=== PATIENT | female | born 1980 | race Two or more races ===

== ENCOUNTER 2020-10-17 17:25 | Emergency (ER) | payer OTHER ==
[~2020-10-17] VITALS: Ht 175.3 cm; Wt 74.8 kg
--- NOTE | 2020-10-17 17:25 | NUR ---
PT BIBRA 878 FROM THE [facility] C/O ETOH. PT IS AAOX3, NOT IN RESPIRATORY DISTRESS, HOOKED TO TYPE MAPPER, KEPT RESTED AND COMFORTABLE. WILL CONTINUE TO MONITOR.
--- NOTE | 2020-10-17 19:30 | NUR ---
covid antigen swab done
[2020-10-17 19:36] LABS: BASOPHILS % (AUTO) 0.6 % (0.0-2.0); EOSINOPHILS % (AUTO) 4.8 % (0.0-6.0); HEMATOCRIT 39 % (33-45); HEMOGLOBIN 13.4 g/dL (11.5-14.8); LYMPHOCYTES # (AUTO) 2.1 /CMM (0.8-4.8); MEAN CORPUSCULAR HGB CONC 35 g/dl (31.0-36.0); MEAN CORPUSCULAR VOLUME 105 fL (82-100); MONOCYTES # (AUTO) 0.5 /CMM (0.1-1.30); MONOCYTES % (AUTO) 9.7 % (2.0-12.0); NEUTROPHILS # (AUTO) 2.7 /CMM (1.8-8.9); NEUTROPHILS % (AUTO) 47.9 % (43.0-81.0); PLATELET COUNT (AUTO) 214 /CMM (150-450); RED BLOOD CELL COUNT(AUTO) 3.69 MIL/uL (4.0-5.2); WHITE BLOOD COUNT (AUTO) 5.7 K/uL (4.3-11.0)
--- NOTE | 2020-10-17 19:43 | NUR ---
MEGAN [phone]
--- NOTE | 2020-10-17 19:45 | NUR ---
URINE SAMPLE NOT COLLECTED, PATIENT REFUSED, SHE SAID SHE CANNOT URINATE THIS TIME, WILL FOLLOW UP AGAIN LATER
[2020-10-17 19:46] LABS: CALCIUM, SERUM 8.1 mg/dL (8.5-10.1); CARBON DIOXIDE 27 mmol/L (21-32); CHLORIDE 105 mmol/L (98-107); CREATININE 0.7 mg/dL (0.6-1.3); GLUCOSE 92 mg/dL (74-106); POTASSIUM 3.8 mmol/L (3.5-5.1); SODIUM SERUM 143 mmol/L (136-145); UREA NITROGEN, BLOOD 13 mg/dL (7-18)
[2020-10-17 19:53] LABS: ALANINE AMINOTRANSFERASE 100 U/L (12-78); ALCOHOL, BLOOD 422 mg/dL (0-0); ALKALINE PHOSPHATASE 87 U/L (46-116); ASPARTATE AMINOTRANSFERASE 141 U/L (15-37); BILIRUBIN,DIRECT 0.1 mg/dL (0.0-0.2); BILIRUBIN,TOTAL 0.3 mg/dL (0.2-1.0); TOTAL PROTEIN, SERUM 7.5 g/dL (6.4-8.2)
[2020-10-17 19:54] LABS: ACETAMINOPHEN < 2 ug/ml (10-30)
--- NOTE | 2020-10-17 20:16 | NUR ---
ER AT BEDSIDE
[2020-10-17] MEDS ORDERED: QUETIAPINE FUMARATE 25 MG TABLET ONE (20:23)
[2020-10-17] MEDS ORDERED: QUETIAPINE FUMARATE 25 MG TABLET PO SCH (20:30)
[2020-10-17] MEDS ORDERED: IBUPROFEN 600 MG TABLET ONE (21:47)
[2020-10-17] MEDS ORDERED: IBUPROFEN 600 MG TABLET PO ONE (22:00)
--- NOTE | 2020-10-17 23:21 | NUR ---
PT AAOX4. PICKED UP BY FAMILY FRIEND. AMBULATORY WITH STEADY GAIT. VSS.
[2020-10-17 23:22] VITALS: BP 119/82
--- NOTE | 2020-10-17 23:22 | NUR ---
Patient discharged to home in stable condition. Written and verbal after care instructions given. Patient verbalizes understanding of instruction.
== END 2020-10-17 23:22 | disposition home or self-care (01) ==
LOC: ER 17:27
DX: F10.129 Alcohol abuse with intoxication, unspecified (principal); Y90.8 Blood alcohol level of 240 mg/100 ml or more; R45.1 Restlessness and agitation; Z20.822 Contact with and (suspected) exposure to COVID-19; Z59.0 Homelessness; R79.89 Other specified abnormal findings of blood chemistry
CPT/HCPCS: 36415; 80048; 80076; 80299; 80320; 84702; 85025; 87426; 99284; C9803; G0480

== ENCOUNTER 2021-05-17 13:09 | Emergency (ER) | payer OTHER ==
[~2021-05-17] VITALS: Ht 175.3 cm; Wt 86.2 kg
--- NOTE | 2021-05-17 13:26 | NUR ---
SEEN BY DR HAQ
--- NOTE | 2021-05-17 15:10 | NUR ---
PATIENT IN BED ASLEEP, EASILY AROUSABLE BY VOICE. HOOKED TO MONITOR. VSS. WILL CONTINUE TO MONITOR, KEPT WARM AND SAFE.
--- NOTE | 2021-05-17 16:53 | NUR ---
PATIENT VERBALIZES SHE WANTS TO GO HOME, NO SUICIDAL IDEATION. PATIENT ABLE TO WALK WITH STEADY GAIT. MADE MD AWARE
--- NOTE | 2021-05-17 16:56 | NUR ---
Patient discharged to home in stable condition. Written and verbal after care instructions given. Patient verbalizes understanding of instruction.
[2021-05-17 16:57] VITALS: BP 129/80
== END 2021-05-17 16:56 | disposition home or self-care (01) ==
LOC: ER 13:12
DX: F10.129 Alcohol abuse with intoxication, unspecified (principal); Y90.9 Presence of alcohol in blood, level not specified

== ENCOUNTER 2021-09-08 12:40 | Emergency (ER) | payer OTHER ==
[~2021-09-08] VITALS: Ht 175.3 cm; Wt 76.7 kg
--- NOTE | 2021-09-08 12:45 | NUR ---
[id number] HOME, NAUSEA AND VOMITING, TREMORS SINCE THIS MORNING. LAST ALCOHOL INTAKE LAST NIGHT. TO ER BED 11, HOOKED TO MONITOR, VSS. CHANGED TO HOSP GOWN, WARM BLANKET PROVIDED, PATIENT AAO x 4. BREATHING EVEN AND UNLABORED, AWAITING MD VILLEGAS
--- NOTE | 2021-09-08 12:50 | NUR ---
DR HERNANDEZ AT BEDSIDE
[2021-09-08] MEDS ORDERED: CHLORDIAZEPOXIDE HCL 25 MG CAPSULE ONE (12:58)
[2021-09-08] MEDS ORDERED: ONDANSETRON HCL/PF 4 MG/2 ML VIAL ONE (12:58)
[2021-09-08] MEDS ORDERED: ONDANSETRON HCL/PF 4 MG/2 ML VIAL IV ONE (13:00)
[2021-09-08] MEDS ORDERED: CHLORDIAZEPOXIDE HCL 25 MG CAPSULE PO ONE (13:00)
[2021-09-08] MEDS ORDERED: IV NS 0.9% 1,000 ML BAG IV ONE (13:00)
[2021-09-08 13:17] LABS: BASOPHILS % (AUTO) 1.1 % (0.0-2.0); EOSINOPHILS % (AUTO) 1.8 % (0.0-6.0); HEMATOCRIT 43 % (33-45); HEMOGLOBIN 14.9 g/dL (11.5-14.8); LYMPHOCYTES # (AUTO) 0.6 K/uL (0.8-4.8); LYMPHOCYTES % (AUTO) 20.9 % (20.0-44.0); MEAN CORPUSCULAR HGB CONC 35 g/dl (31.0-36.0); MEAN CORPUSCULAR VOLUME 105 fL (82-100); MONOCYTES # (AUTO) 0.3 K/uL (0.1-1.30); MONOCYTES % (AUTO) 11.2 % (2.0-12.0); NEUTROPHILS # (AUTO) 1.9 K/uL (1.8-8.9); PLATELET COUNT (AUTO) 134 K/uL (150-450); RED BLOOD CELL COUNT(AUTO) 4.12 MIL/uL (4.0-5.2); WHITE BLOOD COUNT (AUTO) 2.9 K/uL (4.3-11.0)
--- NOTE | 2021-09-08 13:18 | NUR ---
PATIENT NOT ABLE TO PROVIDE URINE SAMPLE AT THIS TIME. MADE AWARE
[2021-09-08 13:29] LABS: ALBUMIN 4.3 g/dL (3.4-5.0); BILIRUBIN,DIRECT 0.6 mg/dL (0.0-0.2); BILIRUBIN,TOTAL 1.3 mg/dL (0.2-1.0); CALCIUM, SERUM 9.2 mg/dL (8.5-10.1); CREATININE 0.9 mg/dL (0.6-1.3); POTASSIUM 3.8 mmol/L (3.5-5.1); TOTAL PROTEIN, SERUM 8.7 g/dL (6.4-8.2)
--- NOTE | 2021-09-08 13:43 | NUR ---
X-RAY TECH. AT BED SIDE.
--- NOTE | 2021-09-08 14:00 | NUR ---
PATIENT STILL NOT ABLE TO PROVIDE URINE SAMPLE, PER MD "IT'S OK"
[2021-09-08] MEDS ORDERED: CHLO25CA22 PO (14:16)
[2021-09-08] MEDS ORDERED: ONDA4TAB5 PO (14:16)
--- NOTE | 2021-09-08 14:30 | NUR ---
SW AT BEDSIDE
--- NOTE | 2021-09-08 14:36 | NUR ---
Close friends: Christiano [[phone]], Dario [[phone]].
--- NOTE | 2021-09-08 14:47 | NUR ---
SS Consult: SS consult for ETOH. Pt. Is a 41-year-old female who demonstrates adequate insight to the reason for hospitalization. Per pt., she presented herself to hospital for drinking. Pt. was oriented x3, alert, and cooperative. During interview, pt. was capable of following directions, made appropriate eye-contact, and appeared groomed. Pt. is currently withdrawing from drinking last night. Pt.'s speech was at a normal rate and pt.'s mood was elevated. Pt. reported no hx of mental health, suicidal ideation, or homicidal ideation. Pt. denies visual hallucinations, paranoia, or delusions. Pt. stated that she has hx of auditory hallucinations. She hears her father's voice who years ago. Pt. has been drinking for 10 years. She stated that she has tried rehab, but she does not like it. SW explored pt.'s living situation. Per pt., she lives alone [[address] [place] [address]]. She has a supportive neighbor and 2 close friends [Christiano [phone] and Dario [phone]]. Plan: MARIANNA provided available addiction and rehab resources and pt. accepted. Upon discharge, per pt., she will return home. Pt. stated that her friends Christiano or Dario can come pick her up. Resources Provided: Substance Abuse resources provided included: [facility] Substance Abuse Self-Helpline ([facility]) ; [facility] [id number] [facility] [id number] ; [facility] [address] [facility] [address] ; [facility] [address] [facility] [address] ; [facility] [address] [facility] [address] ; [facility] [address] [facility] [address] ; [facility] [address] [facility] [id number] ; [facility] Substance Abuse Helpline([facility] ; [facility] ; [facility] [place]; [facility] [place]; [facility] [place]; [facility] [place]; [facility] [place]; [facility] [place]; [facility]; [facility], [facility]. Felicia Schmidt; Alcoholics Anonymous [facility]; [facility] ; Marijuana Anonymous [facility]; Narcotics Anonymous www.na.org;
--- NOTE | 2021-09-08 15:00 | NUR ---
IV removed. Catheter intact and site benign. Pressure and 4x4 applied to site. No bleeding noted.Patient discharged to home in stable condition. Written and verbal after care instructions given. Patient verbalizes understanding of instruction.
[2021-09-08 15:01] VITALS: BP 149/100
--- NOTE | 2021-09-08 15:03 | NUR ---
INSTRUCTED NOT TO DRIVE. PATIENT STATES "SOMEONE WILL PICK ME UP"
[2021-09-09 03:12] LABS: EOSINOPHILS % (MANUAL) 2 % (0-4); LYMPHOCYTES % (MANUAL) 22 % (16-48); MONOCYTES % (MANUAL) 13 % (0-11.0); NEUTROPHILS % (MANUAL) 63 (42-76)
== END 2021-09-08 15:03 | disposition home or self-care (01) ==
LOC: ER 12:54
DX: F10.229 Alcohol dependence with intoxication, unspecified (principal); F10.239 Alcohol dependence with withdrawal, unspecified; R74.01 Elevation of levels of liver transaminase levels; E80.6 Other disorders of bilirubin metabolism; E87.1 Hypo-osmolality and hyponatremia; Y90.6 Blood alcohol level of 120-199 mg/100 ml
CPT/HCPCS: 36415; 71045; 80048; 80076; 80320; 85007; 85025; 96361; 96374; 99284; J2405; J7030; G0480

== ENCOUNTER 2021-09-21 09:31 | Emergency (ER) | payer OTHER ==
[~2021-09-21] VITALS: Ht 175.3 cm; Wt 68.0 kg
[~2021-09-21 09:31] MED LIST: CHLO25CA22 PO; ONDA4TAB5 PO
--- NOTE | 2021-09-21 10:00 | NUR ---
to er bed 10. bib ra from car/home with etoh noted on breath. provided with warm blanket for comfort. will contineu to monitor.
[2021-09-21 10:58] LABS: BASOPHILS # (AUTO) 0.1 K/uL (0.0-0.2); EOSINOPHILS % (AUTO) 4.9 % (0.0-6.0); HEMATOCRIT 39 % (33-45); HEMOGLOBIN 13.6 g/dL (11.5-14.8); LYMPHOCYTES # (AUTO) 1.6 K/uL (0.8-4.8); LYMPHOCYTES % (AUTO) 29.1 % (20.0-44.0); MEAN CORPUSCULAR HGB CONC 35 g/dl (31.0-36.0); MEAN CORPUSCULAR VOLUME 106 fL (82-100); MONOCYTES # (AUTO) 0.6 K/uL (0.1-1.30); MONOCYTES % (AUTO) 10.5 % (2.0-12.0); NEUTROPHILS # (AUTO) 2.9 K/uL (1.8-8.9); NEUTROPHILS % (AUTO) 54.5 % (43.0-81.0); PLATELET COUNT (AUTO) 365 K/uL (150-450); RED BLOOD CELL COUNT(AUTO) 3.66 MIL/uL (4.0-5.2); WHITE BLOOD COUNT (AUTO) 5.3 K/uL (4.3-11.0)
[2021-09-21 11:29] LABS: CALCIUM, SERUM 9.1 mg/dL (8.5-10.1); CREATININE 0.6 mg/dL (0.6-1.3); POTASSIUM 4.2 mmol/L (3.5-5.1)
[2021-09-21 11:34] LABS: BILIRUBIN,URINE NEGATIVE (NEGATIVE); COLOR,URINE YELLOW (YELLOW); LEUKOCYTE ESTERASE ,URINE TRACE (NEGATIVE); NITRITE, URINE NEGATIVE (NEGATIVE); PROTEIN,URINE NEGATIVE (NEGATIVE); UGLUCOSE NEGATIVE (NEGATIVE); UROBILINOGEN,URINE 0.2 EU/dL (0.2)
[2021-09-21 11:37] LABS: ALBUMIN 4.1 g/dL (3.4-5.0); BILIRUBIN,DIRECT 0.2 mg/dL (0.0-0.2); BILIRUBIN,TOTAL 0.4 mg/dL (0.2-1.0); TOTAL PROTEIN, SERUM 8.3 g/dL (6.4-8.2)
[2021-09-21 12:06] LABS: BACTERIA,URINE Many /HPF (None Seen); SQUAMOUS EPITHELIAL CELL,UR Few /HPF (None Seen); WBC,URINE 20-25 /HPF (0-3)
[2021-09-21] MEDS ORDERED: CHLO25CA22 PO (13:24)
[2021-09-21 13:34] VITALS: BP 126/84
== END 2021-09-21 13:35 | disposition home or self-care (01) ==
LOC: ER 09:33
DX: F10.229 Alcohol dependence with intoxication, unspecified (principal); R74.01 Elevation of levels of liver transaminase levels; F32.A Depression, unspecified; F41.9 Anxiety disorder, unspecified; Z79.899 Other long term (current) drug therapy; Y90.8 Blood alcohol level of 240 mg/100 ml or more
CPT/HCPCS: 36415; 80048-TC; 80076-TC; 81001; 85025-TC; 87086-TC; G0480

== ENCOUNTER 2022-06-08 15:02 | Emergency (ER) | payer OTHER ==
[~2022-06-08] VITALS: Ht 175.3 cm; Wt 84.4 kg
[2022-06-08 16:03] LABS: BASOPHILS # (AUTO) 0.2 K/uL (0.0-0.2); BASOPHILS % (AUTO) 0.8 % (0.0-2.0); EOSINOPHILS % (AUTO) 1.6 % (0.0-6.0); HEMATOCRIT 30 % (33-45); HEMOGLOBIN 9.9 g/dL (11.5-14.8); LYMPHOCYTES # (AUTO) 1.8 K/uL (0.8-4.8); LYMPHOCYTES % (AUTO) 6.5 % (20.0-44.0); MEAN CORPUSCULAR HGB CONC 33 g/dl (31.0-36.0); MEAN CORPUSCULAR VOLUME 109 fL (82-100); MONOCYTES # (AUTO) 1.6 K/uL (0.1-1.30); MONOCYTES % (AUTO) 5.6 % (2.0-12.0); NEUTROPHILS # (AUTO) 24.1 K/uL (1.8-8.9); NEUTROPHILS % (AUTO) 85.5 % (43.0-81.0); PLATELET COUNT (AUTO) 327 K/uL (150-450); RED BLOOD CELL COUNT(AUTO) 2.74 MIL/uL (4.0-5.2); WHITE BLOOD COUNT (AUTO) 28.2 K/uL (4.3-11.0)
[2022-06-08 16:14] LABS: CALCIUM, SERUM 7.6 mg/dL (8.5-10.1)
[2022-06-08 16:24] LABS: ALBUMIN 1.7 g/dL (3.4-5.0); BILIRUBIN,DIRECT 9.8 mg/dL (0.0-0.2); BILIRUBIN,TOTAL 12.3 mg/dL (0.2-1.0); TOTAL PROTEIN, SERUM 6.4 g/dL (6.4-8.2)
[2022-06-08] MEDS ORDERED: IV NS 0.9% 1,000 ML BAG IV ONE (16:30)
[2022-06-08] MEDS ORDERED: CEFTRIAXONE 1GM BAG (ER ONLY) 1 GM/50 ML PIGGYBACK IV ONE (16:30)
[2022-06-08] MEDS ORDERED: CEFTRIAXONE 1GM BAG (ER ONLY) 50 ML IV ONE (16:48)
[2022-06-08 17:24] LABS: BAND % (MANUAL) 2 % (0.0-5.0); EOSINOPHILS % (MANUAL) 1 % (0-4); LYMPHOCYTES % (MANUAL) 5 % (16-48); MONOCYTES % (MANUAL) 8 % (0-11.0); NEUTROPHILS % (MANUAL) 84 (42-76)
[2022-06-08] MEDS ORDERED: IOHEXOL-300 100 ML VIAL IV ONE (18:05)
[2022-06-08] MEDS ORDERED: IV NS 0.9% 250 ML IV ONE (18:06)
[2022-06-08 18:15] LABS: BILIRUBIN,URINE 3+ (NEGATIVE); COLOR,URINE AMBER (YELLOW); LEUKOCYTE ESTERASE ,URINE TRACE (NEGATIVE); NITRITE, URINE NEGATIVE (NEGATIVE); PH,URINE 7.5 (5.0-8.0); PROTEIN,URINE 1+ mg/dl (NEGATIVE); UGLUCOSE TRACE mg/dL (NEGATIVE)
[2022-06-08 18:27] LABS: BACTERIA,URINE 1+ /HPF (None Seen); RBC,URINE 0-2 /HPF (0-2); SQUAMOUS EPITHELIAL CELL,UR Moderate /HPF (None Seen); YEAST,URINE Few /HPF (None Seen)
[2022-06-08 20:41] VITALS: BP 109/67
== END 2022-06-08 21:55 | disposition left against medical advice (07) ==
LOC: ER 15:04
DX: K70.31 Alcoholic cirrhosis of liver with ascites (principal); R00.0 Tachycardia, unspecified; D72.829 Elevated white blood cell count, unspecified; J90 Pleural effusion, not elsewhere classified; Z97.5 Presence of (intrauterine) contraceptive device; A41.9 Sepsis, unspecified organism; Z20.822 Contact with and (suspected) exposure to COVID-19; Z53.29 Procedure and treatment not carried out because of patient's decision for other reasons
CPT/HCPCS: 99291; 74177; 96365; 87426; 82140; 85025; 80048; 87040 ×2; 83605 ×2; 83690; 80076; 84703; 85610; 81001; 36415; 87081; 85007; J7050; J0696; Q9967; C9803

== ENCOUNTER 2023-02-02 11:56 | Inpatient (IN) | payer OTHER ==
[~2023-02-02] VITALS: Ht 175.3 cm; Wt 78.0 kg
[2023-02-02] MEDS ORDERED: MORPHINE SULFATE INJ 4 MG/ML DISP.SYRIN ONE (13:59)
[2023-02-02] MEDS ORDERED: ONDANSETRON HCL/PF 4 MG/2 ML VIAL ONE (13:59)
[2023-02-02] MEDS ORDERED: ONDANSETRON HCL/PF - ER 4 MG/2 ML VIAL IV ONE (14:00)
[2023-02-02] MEDS ORDERED: MORPHINE SULFATE INJ 2 MG/ML DISP.SYRIN IV ONE (14:00)
[2023-02-02 14:11] LABS: PREGNANCY TEST URINE QUAL NEGATIVE (NEGATIVE)
[2023-02-02 14:13] LABS: BASOPHILS # (AUTO) 0.1 K/uL (0.0-0.2); BASOPHILS % (AUTO) 1.3 % (0.0-2.0); EOSINOPHILS # (AUTO) 0.1 K/uL (0.0-0.7); EOSINOPHILS % (AUTO) 1.4 % (0.0-6.0); LYMPHOCYTES # (AUTO) 0.5 K/uL (0.8-4.8); MEAN CORPUSCULAR HEMOGLOBIN 37 PG (26.0-33.0); MEAN CORPUSCULAR HGB CONC 34 g/dl (31.0-36.0); MEAN CORPUSCULAR VOLUME 109 fL (82-100); MONOCYTES # (AUTO) 0.9 K/uL (0.1-1.30); MONOCYTES % (AUTO) 8.2 % (2.0-12.0); NEUTROPHILS # (AUTO) 8.9 K/uL (1.8-8.9); NEUTROPHILS % (AUTO) 84.1 % (43.0-81.0); PLATELET COUNT (AUTO) 194 K/uL (150-450); WHITE BLOOD COUNT (AUTO) 10.6 K/uL (4.3-11.0)
[2023-02-02 14:14] LABS: APPEARANCE,URINE CLOUDY (CLEAR); BILIRUBIN,URINE 2+ (NEGATIVE); BLOOD, URINE TRACE-INTA Ery/uL (NEGATIVE); COLOR,URINE YELLOW (YELLOW); KETONES,URINE 1+ mg/dL (NEGATIVE); LEUKOCYTE ESTERASE ,URINE 3+ (NEGATIVE); NITRITE, URINE POSITIVE (NEGATIVE); PH,URINE 5.5 (5.0-8.0); PROTEIN,URINE TRACE mg/dl (NEGATIVE); UGLUCOSE NEGATIVE (NEGATIVE)
[2023-02-02 14:25] LABS: ALBUMIN 3.4 g/dL (3.4-5.0); BILIRUBIN,DIRECT 3.2 mg/dL (0.0-0.2); BILIRUBIN,TOTAL 8.8 mg/dL (0.2-1.0); CALCIUM, SERUM 8.9 mg/dL (8.5-10.1); CREATININE 1.2 mg/dL (0.6-1.3); MAGNESIUM 1.7 mg/dL (1.8-2.4); POTASSIUM 3.9 mmol/L (3.5-5.1); TOTAL PROTEIN, SERUM 6.5 g/dL (6.4-8.2)
[2023-02-02 14:40] LABS: HEMOGLOBIN 5.7 g/dL (11.5-14.8); RED BLOOD CELL COUNT(AUTO) 1.52 MIL/uL (4.0-5.2)
[2023-02-02 14:41] LABS: HEMATOCRIT 17 % (33-45)
[2023-02-02] MEDS ORDERED: FURO-145 PO (14:51)
[2023-02-02] MEDS ORDERED: SPIR25TA6 PO (14:51)
[2023-02-02 16:36] LABS: EOSINOPHILS % (MANUAL) 1 % (0-4); LYMPHOCYTES % (MANUAL) 5 % (16-48); MONOCYTES % (MANUAL) 3 % (0-11.0); NEUTROPHILS % (MANUAL) 91 (42-76)
[2023-02-02 16:37] LABS: ANISOCYTOSIS 1+; PLATELET ESTIMATE ADEQUATE
[2023-02-02 16:42] LABS: ADD URINE CULTURE YES; BACTERIA,URINE 4+ /HPF (None Seen); MUCUS,URINE Few /LPF (None Seen)
[2023-02-02] MEDS ORDERED: PANTOPRAZOLE 80 MG in IV NS 0.9% 500 ML IV ONE (17:00)
[2023-02-02] MEDS ORDERED: PANTOPRAZOLE 40 MG VIAL ONE (17:13)
[2023-02-02] MEDS ORDERED: CEFTRIAXONE 1GM BAG (ER ONLY) 50 ML IV ONE (17:13)
[2023-02-02] MEDS ORDERED: CEFTRIAXONE 1 G in IV D5W 50 ML IV ONE (17:30)
[2023-02-02] MEDS ORDERED: Magnesium 1GM/D5W 100ML PREMIX 100 ML IV SCH (17:30)
[2023-02-02] MEDS ORDERED: ONDANSETRON HCL/PF 4 MG/2 ML VIAL IVP PRN (17:30)
[2023-02-02] MEDS ORDERED: PANTOPRAZOLE 40 MG VIAL IV ONE (17:30)
[2023-02-02 17:44] LABS: INR 1.46 (0.91-1.10); PARTIAL THROMBOPLASTIN TIME 30.2 SEC (24.3-34.3)
[2023-02-02] MEDS ORDERED: Magnesium 1GM/D5W 100ML PREMIX 100 ML IV ONE (18:01)
[2023-02-02 20:45] VITALS: BP 109/47; TEMP 98.8
[2023-02-02 21:00] VITALS: BP 116/56; TEMP 98.2
[2023-02-02 21:30] VITALS: BP 113/59; TEMP 98.6
[2023-02-02 22:30] VITALS: BP 114/68; TEMP 98.6
[2023-02-02 23:30] VITALS: BP 103/53; TEMP 98.4
[2023-02-02 23:44] VITALS: BP 109/63; TEMP 98.3
[2023-02-03] VITALS (17 sets, daily range): BP systolic 99–120; BP diastolic 49–78; TEMP 98.1–99; O2SAT 99–100
[2023-02-03 02:38] LABS: HEMOGLOBIN 6.1 g/dL (11.5-14.8)
[2023-02-03 08:30] LABS: BASOPHILS # (AUTO) 0.4 K/uL (0.0-0.2); BASOPHILS % (AUTO) 4.1 % (0.0-2.0); EOSINOPHILS # (AUTO) 0.3 K/uL (0.0-0.7); EOSINOPHILS % (AUTO) 3.2 % (0.0-6.0); HEMATOCRIT 23 % (33-45); HEMOGLOBIN 7.5 g/dL (11.5-14.8); LYMPHOCYTES # (AUTO) 1.6 K/uL (0.8-4.8); LYMPHOCYTES % (AUTO) 15.8 % (20.0-44.0); MEAN CORPUSCULAR HEMOGLOBIN 37 PG (26.0-33.0); MEAN CORPUSCULAR HGB CONC 33 g/dl (31.0-36.0); MEAN CORPUSCULAR VOLUME 112 fL (82-100); MONOCYTES # (AUTO) 0.8 K/uL (0.1-1.30); MONOCYTES % (AUTO) 7.5 % (2.0-12.0); NEUTROPHILS # (AUTO) 7.1 K/uL (1.8-8.9); NEUTROPHILS % (AUTO) 69.4 % (43.0-81.0); PLATELET COUNT (AUTO) 164 K/uL (150-450); RED BLOOD CELL COUNT(AUTO) 2.01 MIL/uL (4.0-5.2); RED CELL DISTRIBUTION WIDTH 20.1 % (11.5-15.0); WHITE BLOOD COUNT (AUTO) 10.2 K/uL (4.3-11.0)
[2023-02-03 08:52] LABS: ALBUMIN 3.1 g/dL (3.4-5.0); BILIRUBIN,TOTAL 7.6 mg/dL (0.2-1.0); CALCIUM, SERUM 8.6 mg/dL (8.5-10.1); MAGNESIUM 2.2 mg/dL (1.8-2.4); PHOSPHORUS 4.2 mg/dL (2.5-4.9); POTASSIUM 3.7 mmol/L (3.5-5.1); TOTAL PROTEIN, SERUM 6.5 g/dL (6.4-8.2)
[2023-02-03] MEDS: SPIRONOLACTONE 25 MG TABLET PO SCH ×2 (09:00→17:14)
[2023-02-03] MEDS: FUROSEMIDE 20 MG TABLET PO SCH ×2 (09:00→17:14)
[2023-02-03] MEDS: CEFTRIAXONE 1 G in IV D5W 50 ML IV SCH (09:45)
[2023-02-03 13:13] LABS: HEMOGLOBIN 6.8 g/dL (11.5-14.8)
[2023-02-03] MEDS: HYDROCODONE/APAP 5/325MG TABLET PO PRN (14:17)
[2023-02-03] MEDS ORDERED: FUROSEMIDE 20 MG/2 ML VIAL IV PRN (20:00)
[2023-02-03] MEDS: MORPHINE SULFATE INJ 2 MG/ML DISP.SYRIN IV PRN (20:36)
[2023-02-03] MEDS: PANTOPRAZOLE 40 MG VIAL IV SCH (20:37)
[2023-02-03 23:46] LABS: HEMOGLOBIN 7.4 g/dL (11.5-14.8)
[2023-02-04] VITALS (11 sets, daily range): BP systolic 99–120; BP diastolic 39–81; TEMP 98.2–99.6; O2SAT 96–100
[2023-02-04 04:27] LABS: HEMOGLOBIN 8.1 g/dL (11.5-14.8)
[2023-02-04] MEDS: MORPHINE SULFATE INJ 2 MG/ML DISP.SYRIN IV PRN ×3 (04:30→12:47)
[2023-02-04] MEDS: PANTOPRAZOLE 40 MG VIAL IV SCH (08:27)
[2023-02-04] MEDS: SPIRONOLACTONE 25 MG TABLET PO SCH ×2 (08:27→16:45)
[2023-02-04] MEDS: FUROSEMIDE 20 MG TABLET PO SCH ×2 (08:27→16:45)
[2023-02-04] MEDS: CEFTRIAXONE 1 G in IV D5W 50 ML IV SCH (08:32)
[2023-02-04] MEDS: PANTOPRAZOLE 40 MG TABLET.DR PO SCH ×2 (09:00→20:46)
[2023-02-04 12:58] LABS: HEMOGLOBIN 6.8 g/dL (11.5-14.8)
[2023-02-04] MEDS ORDERED: ACETAMINOPHEN 325 MG TABLET PO PRN (15:12)
[2023-02-04 20:30] LABS: HEMOGLOBIN 8.2 g/dL (11.5-14.8)
[2023-02-04] MEDS: HYDROCODONE/APAP 5/325MG TABLET PO PRN (20:49)
[2023-02-05] VITALS: BP 113/48; TEMP 97.8; O2SAT 100
[2023-02-05 04:00] VITALS: BP 107/62; TEMP 99; O2SAT 100
[2023-02-05] MEDS: HYDROCODONE/APAP 5/325MG TABLET PO PRN (05:33)
[2023-02-05 05:54] LABS: BASOPHILS % (AUTO) 0.2 % (0.0-2.0); EOSINOPHILS # (AUTO) 0.1 K/uL (0.0-0.7); EOSINOPHILS % (AUTO) 1.6 % (0.0-6.0); HEMATOCRIT 22 % (33-45); HEMOGLOBIN 7.7 g/dL (11.5-14.8); LYMPHOCYTES # (AUTO) 0.9 K/uL (0.8-4.8); LYMPHOCYTES % (AUTO) 16.1 % (20.0-44.0); MEAN CORPUSCULAR HEMOGLOBIN 35 PG (26.0-33.0); MEAN CORPUSCULAR HGB CONC 34 g/dl (31.0-36.0); MEAN CORPUSCULAR VOLUME 100 fL (82-100); MONOCYTES # (AUTO) 0.6 K/uL (0.1-1.30); NEUTROPHILS % (AUTO) 71.1 % (43.0-81.0); PLATELET COUNT (AUTO) 120 K/uL (150-450); RED BLOOD CELL COUNT(AUTO) 2.22 MIL/uL (4.0-5.2); RED CELL DISTRIBUTION WIDTH 21.8 % (11.5-15.0); WHITE BLOOD COUNT (AUTO) 5.6 K/uL (4.3-11.0)
[2023-02-05 06:06] LABS: CALCIUM, SERUM 8.3 mg/dL (8.5-10.1); CREATININE 0.6 mg/dL (0.6-1.3); POTASSIUM 3.6 mmol/L (3.5-5.1)
[2023-02-05 06:11] LABS: MAGNESIUM 1.7 mg/dL (1.8-2.4); PHOSPHORUS 2.5 mg/dL (2.5-4.9)
[2023-02-05 08:00] VITALS: BP 103/54; TEMP 99.2; O2SAT 100
[2023-02-05] MEDS: PANTOPRAZOLE 40 MG TABLET.DR PO SCH (08:10)
[2023-02-05] MEDS: FUROSEMIDE 20 MG TABLET PO SCH (08:10)
[2023-02-05] MEDS: SPIRONOLACTONE 25 MG TABLET PO SCH (08:10)
[2023-02-05] MEDS: CEFTRIAXONE 1 G in IV D5W 50 ML IV SCH (08:10)
[2023-02-05] MEDS ORDERED: MAGNESIUM OXIDE 400 MG TABLET PO ONE (10:30)
[2023-02-05] MEDS ORDERED: OXYC5CAP18 PO (10:34)
[2023-02-05 12:00] VITALS: BP 110/63; TEMP 98.7; O2SAT 99
== END 2023-02-05 14:20 | disposition home or self-care (01) | DRG 663 ==
LOC: ER 11:58 → TELE-TD 18:31 → TELE1 23:11
PROVIDERS: ADMIT Internal Medicine; ATTEND Internal Medicine
PROC: 30233N1 Transfusion of Nonautologous Red Blood Cells into Peripheral Vein, Percutaneous Approach (ICD-10-PCS; principal; 2023-02-02)
DX: D50.0 Iron deficiency anemia secondary to blood loss (chronic) (principal); D68.9 Coagulation defect, unspecified; K70.30 Alcoholic cirrhosis of liver without ascites; G57.02 Lesion of sciatic nerve, left lower limb; E80.6 Other disorders of bilirubin metabolism; R74.01 Elevation of levels of liver transaminase levels; K83.8 Other specified diseases of biliary tract; N39.0 Urinary tract infection, site not specified
CPT/HCPCS: 36415; 71045-TC; 72100-TC; 72148-TC; 74181-TC; 76700-TC; 80048-TC; 80053-TC; 80076-TC; 81001; 83605-TC; 83690-TC; 83735-TC; 84100-TC; 84484-TC; 84703-TC; 85025-TC; 85027-TC; 85730-TC; 86850-TC; 87081-TC; 87086-TC; 97112-TC; 97116-TC; 97530-TC; A4223; A6403; C9113; G0378; J0696; J1940; J2270; J2405; J3475; J7030; J7050; J7060; P9016

== ENCOUNTER 2023-02-21 13:02 | Emergency (ER) | payer OTHER ==
[~2023-02-21] VITALS: Ht 172.7 cm; Wt 71.7 kg
[~2023-02-21 13:02] MED LIST changes: -CHLO25CA22 PO; +FURO-145 PO; -ONDA4TAB5 PO; +OXYC5CAP18 PO; +SPIR25TA6 PO
[2023-02-21 14:47] VITALS: BP 112/81; TEMP 98.4; O2SAT 100
== END 2023-02-21 14:48 | disposition home or self-care (01) ==
LOC: ER 13:02
DX: S61.211A Laceration without foreign body of left index finger without damage to nail, initial encounter (principal); F10.10 Alcohol abuse, uncomplicated; Z79.899 Other long term (current) drug therapy; Z88.1 Allergy status to other antibiotic agents; Y90.9 Presence of alcohol in blood, level not specified; W25.XXXA Contact with sharp glass, initial encounter; Y93.89 Activity, other specified; Y92.89 Other specified places as the place of occurrence of the external cause; Y99.8 Other external cause status
CPT/HCPCS: 99283; 12001; 82962; A6403

== ENCOUNTER 2023-12-07 03:46 | Emergency (ER) | payer OTHER ==
[~2023-12-07] VITALS: Ht 175.3 cm; Wt 71.7 kg
[2023-12-07] MEDS ORDERED: OLANZAPINE 10 MG VIAL IM ONE (07:17)
[2023-12-07] MEDS: OLANZAPINE 10 MG VIAL IM ONE (07:27)
[2023-12-07 08:49] VITALS: BP 138/69; TEMP 97.7; O2SAT 98
[2023-12-07] MEDS ORDERED: ONDANSETRON 4 MG TAB.RAPDIS SL ONE (09:00)
== END 2023-12-07 08:49 | disposition home or self-care (01) ==
LOC: ER 04:02
DX: F10.10 Alcohol abuse, uncomplicated (principal); Z79.899 Other long term (current) drug therapy; Z88.1 Allergy status to other antibiotic agents; Y90.9 Presence of alcohol in blood, level not specified
CPT/HCPCS: 99283; 96372; 82962; J3490

== ENCOUNTER 2024-01-14 12:17 | Emergency (ER) | payer OTHER ==
[~2024-01-14] VITALS: Ht 175.3 cm; Wt 68.5 kg
[2024-01-14 13:23] LABS: APPEARANCE,URINE CLEAR (CLEAR); BILIRUBIN,URINE 1+ (NEGATIVE); BLOOD, URINE NEGATIVE Ery/uL (NEGATIVE); COLOR,URINE YELLOW (YELLOW); KETONES,URINE NEGATIVE (NEGATIVE); LEUKOCYTE ESTERASE ,URINE 1+ (NEGATIVE); NITRITE, URINE NEGATIVE (NEGATIVE); PROTEIN,URINE NEGATIVE (NEGATIVE); UGLUCOSE NEGATIVE (NEGATIVE)
[2024-01-14 13:27] LABS: PREGNANCY TEST URINE QUAL NEGATIVE (NEGATIVE)
[2024-01-14 13:36] LABS: ADD URINE CULTURE YES; BACTERIA,URINE 1+ /HPF (None Seen); RBC,URINE NONE SEEN /HPF (0-2)
[2024-01-14 13:43] LABS: AMPHETAMINE, URINE NEGATIVE (NEGATIVE); BARBITURATE, URINE NEGATIVE (NEGATIVE); BENZODIAZEPINE, URINE NEGATIVE (NEGATIVE); CANNABINOID, URINE POSITIVE (NEGATIVE); COCCAINE, URINE NEGATIVE (NEGATIVE); OPIATE, URINE NEGATIVE (NEGATIVE); PHENCYCLIDINE SCREEN,URINE NEGATIVE (NEGATIVE)
[2024-01-14] MEDS ORDERED: NITR100C6 PO (14:25)
[2024-01-14 14:59] VITALS: BP 115/66; TEMP 98.4; O2SAT 100
== END 2024-01-14 15:00 | disposition home or self-care (01) ==
LOC: ER 12:19
DX: F10.129 Alcohol abuse with intoxication, unspecified (principal); R10.2 Pelvic and perineal pain; Z79.899 Other long term (current) drug therapy; Z79.891 Long term (current) use of opiate analgesic; Z88.1 Allergy status to other antibiotic agents; Y90.9 Presence of alcohol in blood, level not specified
CPT/HCPCS: 81001; 82962-TC; 84703-TC

== ENCOUNTER 2024-03-10 10:30 | Emergency (ER) | payer OTHER ==
[~2024-03-10] VITALS: Ht 175.3 cm; Wt 72.6 kg
[~2024-03-10 10:30] MED LIST changes: +NITR100C6 PO
[2024-03-10 15:10] VITALS: BP 126/68; TEMP 97.8; O2SAT 98
== END 2024-03-10 14:45 | disposition left against medical advice (07) ==
LOC: ER 10:55
DX: S09.8XXA Other specified injuries of head, initial encounter (principal); F10.129 Alcohol abuse with intoxication, unspecified; Z79.891 Long term (current) use of opiate analgesic; Z79.899 Other long term (current) drug therapy; Z88.1 Allergy status to other antibiotic agents; Y90.0 Blood alcohol level of less than 20 mg/100 ml; W18.39XA Other fall on same level, initial encounter; Y93.89 Activity, other specified; Y92.481 Parking lot as the place of occurrence of the external cause; Y99.8 Other external cause status
CPT/HCPCS: 70450-TC; 72125-TC

== ENCOUNTER 2024-04-06 12:47 | Inpatient (IN) | payer OTHER ==
[~2024-04-06] VITALS: Ht 175.3 cm; Wt 73.5 kg
[2024-04-06] MEDS: IV NS 0.9% 1,000 ML BAG IV ONE ×2 (13:06→14:39)
[2024-04-06] MEDS ORDERED: OLAN20TA3 PO (13:23)
[2024-04-06] MEDS ORDERED: ALPR1TAB7 PO (13:23)
[2024-04-06] MEDS ORDERED: CELE200C PO (13:23)
[2024-04-06] MEDS ORDERED: SERT50TA PO (13:23)
[2024-04-06] MEDS ORDERED: FLUO10CA29 PO (13:23)
[2024-04-06] MEDS ORDERED: SPIR25TA PO (13:23)
[2024-04-06] MEDS ORDERED: PANT20TA2 PO (13:23)
[2024-04-06 13:28] LABS: BASOPHILS # (AUTO) 0.1 K/uL (0.0-0.2); BASOPHILS % (AUTO) 0.2 % (0.0-2.0); EOSINOPHILS # (AUTO) 0.4 K/uL (0.0-0.7); EOSINOPHILS % (AUTO) 1.2 % (0.0-6.0); HEMATOCRIT 23 % (33-45); LYMPHOCYTES # (AUTO) 1.1 K/uL (0.8-4.8); MEAN CORPUSCULAR HEMOGLOBIN 37 PG (26.0-33.0); MEAN CORPUSCULAR HGB CONC 35 g/dl (31.0-36.0); MEAN CORPUSCULAR VOLUME 108 fL (82-100); MONOCYTES # (AUTO) 1.3 K/uL (0.1-1.30); MONOCYTES % (AUTO) 3.6 % (2.0-12.0); NEUTROPHILS # (AUTO) 33.4 K/uL (1.8-8.9); PLATELET COUNT (AUTO) 79 K/uL (150-450); RED BLOOD CELL COUNT(AUTO) 2.14 MIL/uL (4.0-5.2)
[2024-04-06 13:31] LABS: WHITE BLOOD COUNT (AUTO) 36.3 K/uL (4.3-11.0)
[2024-04-06 13:41] LABS: INR 3.04 (0.91-1.10); PARTIAL THROMBOPLASTIN TIME 54.4 SEC (24.3-34.3)
[2024-04-06 13:42] LABS: LACTIC ACID 2.5 mmol/L (0.4-2.0)
[2024-04-06 13:48] LABS: SERUM AMMONIA < 11 umol/L (11-32)
[2024-04-06 13:52] LABS: ANISOCYTOSIS 1+; EOSINOPHILS % (MANUAL) 2 % (0-4); LYMPHOCYTES % (MANUAL) 3 % (16-48); MONOCYTES % (MANUAL) 7 % (0-11.0); MYELOCYTES % 1 % (0-0); NEUTROPHILS % (MANUAL) 87 (42-76); OVALOCYTES 1+; PLATELET ESTIMATE DECREASED
[2024-04-06] MEDS: PIPERACILLIN /TAZOBACTAM 3.375 G in IV D5W 50 ML IV ONE (13:56)
[2024-04-06 14:05] LABS: CALCIUM, SERUM 8.6 mg/dL (8.5-10.1); CARBON DIOXIDE 22 mmol/L (21-32); CHLORIDE 105 mmol/L (98-107); CREATININE 0.9 mg/dL (0.6-1.3); GLUCOSE 67 mg/dL (74-106); POTASSIUM 3.6 mmol/L (3.5-5.1); SODIUM SERUM 139 mmol/L (136-145); UREA NITROGEN, BLOOD 30 mg/dL (7-18)
[2024-04-06 14:20] LABS: ALANINE AMINOTRANSFERASE 18 U/L (12-78); ALCOHOL, BLOOD < 3 mg/dL (0-10); ALKALINE PHOSPHATASE 234 U/L (46-116); ASPARTATE AMINOTRANSFERASE 74 U/L (15-37); BILIRUBIN,TOTAL 26.7 mg/dL (0.2-1.0)
[2024-04-06] MEDS: VANCOMYCIN 1 GM in IV D5W 250 ML IV ONE (14:20)
[2024-04-06 14:34] LABS: ALBUMIN 1.4 g/dL (3.4-5.0)
[2024-04-06 14:46] LABS: APPEARANCE,URINE CLEAR (CLEAR); BILIRUBIN,URINE 3+ (NEGATIVE); BLOOD, URINE NEGATIVE Ery/uL (NEGATIVE); COLOR,URINE OTHER (YELLOW); KETONES,URINE NEGATIVE (NEGATIVE); LEUKOCYTE ESTERASE ,URINE NEGATIVE (NEGATIVE); NITRITE, URINE NEGATIVE (NEGATIVE); PH,URINE 6.5 (5.0-8.0); PROTEIN,URINE TRACE mg/dl (NEGATIVE); UGLUCOSE TRACE mg/dL (NEGATIVE)
[2024-04-06 14:49] LABS: TOTAL PROTEIN, SERUM 6.6 g/dL (6.4-8.2)
[2024-04-06 14:50] LABS: PREGNANCY TEST URINE QUAL NEGATIVE (NEGATIVE)
[2024-04-06 15:09] LABS: ADD URINE CULTURE YES; BACTERIA,URINE Few /HPF (None Seen)
[2024-04-06 15:10] LABS: SQUAMOUS EPITHELIAL CELL,UR Moderate /HPF (None Seen)
[2024-04-06] MEDS ORDERED: Z GUARD REMEDY 4 OZ OINT TP PRN (16:30)
[2024-04-06 17:00] VITALS: BP 93/49; TEMP 97.5
[2024-04-06] MEDS: IV D5/ 0.9% NACL 1,000 ML IV PRN (17:46)
[2024-04-06] MEDS: PANTOPRAZOLE 40 MG VIAL IV SCH (17:51)
[2024-04-06 20:00] VITALS: BP 110/48; TEMP 97.5
[2024-04-06] MEDS: PIPERACILLIN /TAZOBACTAM 3.375 G in IV D5W 50 ML IV SCH (20:47)
[2024-04-06] MEDS ORDERED: ZOLPIDEM TARTRATE 5 MG TABLET ONE (23:34)
[2024-04-06] MEDS: ZOLPIDEM TARTRATE 10 MG TABLET PO PRN (23:48)
[2024-04-07] VITALS: BP 109/53; TEMP 97.5
[2024-04-07 04:00] VITALS: BP 109/53; TEMP 97.3; O2SAT 100
[2024-04-07 07:10] LABS: BASOPHILS # (AUTO) 0.1 K/uL (0.0-0.2); BASOPHILS % (AUTO) 0.2 % (0.0-2.0); EOSINOPHILS # (AUTO) 0.5 K/uL (0.0-0.7); EOSINOPHILS % (AUTO) 1.7 % (0.0-6.0); HEMATOCRIT 23 % (33-45); HEMOGLOBIN 7.4 g/dL (11.5-14.8); LYMPHOCYTES # (AUTO) 1.4 K/uL (0.8-4.8); LYMPHOCYTES % (AUTO) 5.3 % (20.0-44.0); MEAN CORPUSCULAR HEMOGLOBIN 38 PG (26.0-33.0); MEAN CORPUSCULAR HGB CONC 33 g/dl (31.0-36.0); MEAN CORPUSCULAR VOLUME 116 fL (82-100); MONOCYTES # (AUTO) 1.1 K/uL (0.1-1.30); MONOCYTES % (AUTO) 4.1 % (2.0-12.0); NEUTROPHILS % (AUTO) 88.7 % (43.0-81.0); PLATELET COUNT (AUTO) 88 K/uL (150-450); RED CELL DISTRIBUTION WIDTH 22.1 % (11.5-15.0); WHITE BLOOD COUNT (AUTO) 27.1 K/uL (4.3-11.0)
[2024-04-07 07:31] LABS: CALCIUM, SERUM 8.5 mg/dL (8.5-10.1); CREATININE 0.9 mg/dL (0.6-1.3); MAGNESIUM 2.3 mg/dL (1.8-2.4); PHOSPHORUS 4.9 mg/dL (2.5-4.9); POTASSIUM 3.4 mmol/L (3.5-5.1)
[2024-04-07 07:39] LABS: RED BLOOD CELL COUNT(AUTO) 1.97 MIL/uL (4.0-5.2)
[2024-04-07 08:00] VITALS: BP 103/49; TEMP 97.9; O2SAT 99
[2024-04-07 09:38] LABS: BAND % (MANUAL) 2 % (0.0-5.0); EOSINOPHILS % (MANUAL) 1 % (0-4); LYMPHOCYTES % (MANUAL) 4 % (16-48); MONOCYTES % (MANUAL) 1 % (0-11.0); MYELOCYTES % 1 % (0-0); NEUTROPHILS % (MANUAL) 91 (42-76)
[2024-04-07 09:41] LABS: ANISOCYTOSIS 1+; PLATELET ESTIMATE DECREASED
[2024-04-07] MEDS: POTASSIUM CL. PREMIX PERIPHER. 50 ML IV SCH (10:06)
[2024-04-07 12:00] VITALS: BP 98/51; TEMP 97.8; O2SAT 97
[2024-04-07] MEDS ORDERED: PIPERACILLIN /TAZOBACTAM 3.375 G in IV D5W 100 ML IV SCH (13:00)
[2024-04-07 16:04] VITALS: BP 108/51; TEMP 97.6; O2SAT 99
[2024-04-07 20:00] VITALS: BP 106/53; TEMP 98.2; O2SAT 98
[2024-04-08] VITALS: BP 104/50; TEMP 97.7; O2SAT 100
[2024-04-08 04:00] VITALS: BP 116/55; TEMP 97.8; O2SAT 100
[2024-04-08 08:00] VITALS: BP 103/51; TEMP 97.5; O2SAT 100
[2024-04-08] MEDS: PANTOPRAZOLE 40 MG TABLET.DR PO SCH (08:33)
[2024-04-08 12:00] VITALS: BP 103/51; TEMP 97.5; O2SAT 100
[2024-04-08 17:46] LABS: BASOPHILS # (AUTO) 0.1 K/uL (0.0-0.2); BASOPHILS % (AUTO) 0.2 % (0.0-2.0); EOSINOPHILS # (AUTO) 0.4 K/uL (0.0-0.7); EOSINOPHILS % (AUTO) 1.3 % (0.0-6.0); HEMATOCRIT 22 % (33-45); HEMOGLOBIN 7.4 g/dL (11.5-14.8); LYMPHOCYTES # (AUTO) 0.9 K/uL (0.8-4.8); MEAN CORPUSCULAR HEMOGLOBIN 37 PG (26.0-33.0); MEAN CORPUSCULAR HGB CONC 34 g/dl (31.0-36.0); MEAN CORPUSCULAR VOLUME 110 fL (82-100); MONOCYTES # (AUTO) 0.9 K/uL (0.1-1.30); MONOCYTES % (AUTO) 3.1 % (2.0-12.0); NEUTROPHILS # (AUTO) 26.9 K/uL (1.8-8.9); NEUTROPHILS % (AUTO) 92.4 % (43.0-81.0); PLATELET COUNT (AUTO) 134 K/uL (150-450); RED CELL DISTRIBUTION WIDTH 20.7 % (11.5-15.0); WHITE BLOOD COUNT (AUTO) 29.2 K/uL (4.3-11.0)
[2024-04-08 17:58] LABS: CALCIUM, SERUM 8.4 mg/dL (8.5-10.1); CREATININE 0.9 mg/dL (0.6-1.3)
[2024-04-08 18:12] LABS: BILIRUBIN,TOTAL 28.3 mg/dL (0.2-1.0); TOTAL PROTEIN, SERUM 6.3 g/dL (6.4-8.2)
[2024-04-08 18:20] LABS: ALBUMIN 1.3 g/dL (3.4-5.0)
[2024-04-08 18:28] LABS: RED BLOOD CELL COUNT(AUTO) 1.98 MIL/uL (4.0-5.2)
[2024-04-08 20:00] VITALS: BP 114/60; TEMP 99; O2SAT 98
[2024-04-08] MEDS: MORPHINE SULFATE INJ 2 MG/ML DISP.SYRIN IV PRN (20:08)
[2024-04-08 21:03] LABS: ANISOCYTOSIS 1+; BAND % (MANUAL) 3 % (0.0-5.0); EOSINOPHILS % (MANUAL) 3 % (0-4); LYMPHOCYTES % (MANUAL) 4 % (16-48); MONOCYTES % (MANUAL) 2 % (0-11.0); NEUTROPHILS % (MANUAL) 88 (42-76)
[2024-04-08 21:04] LABS: OVALOCYTES RARE; PLATELET ESTIMATE DECRE
[2024-04-09 04:00] VITALS: BP 95/47; TEMP 98.1; O2SAT 99
[2024-04-09 07:04] LABS: BASOPHILS # (AUTO) 0.1 K/uL (0.0-0.2); BASOPHILS % (AUTO) 0.3 % (0.0-2.0); EOSINOPHILS # (AUTO) 0.4 K/uL (0.0-0.7); EOSINOPHILS % (AUTO) 1.4 % (0.0-6.0); HEMATOCRIT 22 % (33-45); HEMOGLOBIN 7.6 g/dL (11.5-14.8); LYMPHOCYTES # (AUTO) 1.4 K/uL (0.8-4.8); LYMPHOCYTES % (AUTO) 5.2 % (20.0-44.0); MEAN CORPUSCULAR HEMOGLOBIN 37 PG (26.0-33.0); MEAN CORPUSCULAR HGB CONC 34 g/dl (31.0-36.0); MEAN CORPUSCULAR VOLUME 109 fL (82-100); MONOCYTES # (AUTO) 1.1 K/uL (0.1-1.30); MONOCYTES % (AUTO) 4.1 % (2.0-12.0); NEUTROPHILS # (AUTO) 23.7 K/uL (1.8-8.9); PLATELET COUNT (AUTO) 139 K/uL (150-450); RED BLOOD CELL COUNT(AUTO) 2.03 MIL/uL (4.0-5.2); RED CELL DISTRIBUTION WIDTH 20.7 % (11.5-15.0); WHITE BLOOD COUNT (AUTO) 26.6 K/uL (4.3-11.0)
[2024-04-09 07:20] LABS: BILIRUBIN,DIRECT 20.7 mg/dL (0.0-0.2); CALCIUM, SERUM 8.4 mg/dL (8.5-10.1); CREATININE 0.9 mg/dL (0.6-1.3)
[2024-04-09 07:40] LABS: BAND % (MANUAL) 1 % (0.0-5.0); EOSINOPHILS % (MANUAL) 2 % (0-4); LYMPHOCYTES % (MANUAL) 7 % (16-48); MONOCYTES % (MANUAL) 3 % (0-11.0); MYELOCYTES % 1 % (0-0); NEUTROPHILS % (MANUAL) 86 (42-76); PLATELET ESTIMATE DECREASED
[2024-04-09 07:41] LABS: ANISOCYTOSIS 1+; TOTAL PROTEIN, SERUM 6.4 g/dL (6.4-8.2)
[2024-04-09 08:00] VITALS: BP 99/49; TEMP 97.6; O2SAT 100
[2024-04-09 08:07] LABS: ALBUMIN 1.2 g/dL (3.4-5.0); POTASSIUM 2.8 mmol/L (3.5-5.1)
[2024-04-09] MEDS: POTASSIUM CHLORIDE 20 MEQ TAB.PRT.SR PO SCH (11:03)
[2024-04-09 12:00] VITALS: BP 104/50; TEMP 97.8; O2SAT 99
[2024-04-09] MEDS: ENSURE ENLIVE CHOC 237 ML CAN PO SCH (15:00)
[2024-04-09 16:00] VITALS: BP 109/46; TEMP 97.8; O2SAT 97
[2024-04-09 20:00] VITALS: BP 122/52; TEMP 99.5; O2SAT 97
[2024-04-09] MEDS: ONDANSETRON HCL/PF 4 MG/2 ML VIAL IVP PRN (21:02)
[2024-04-10 04:00] VITALS: BP 97/50; TEMP 99.5; O2SAT 97
[2024-04-10 06:35] LABS: BASOPHILS # (AUTO) 0.1 K/uL (0.0-0.2); BASOPHILS % (AUTO) 0.2 % (0.0-2.0); EOSINOPHILS # (AUTO) 0.4 K/uL (0.0-0.7); EOSINOPHILS % (AUTO) 1.7 % (0.0-6.0); HEMATOCRIT 27 % (33-45); HEMOGLOBIN 8.6 g/dL (11.5-14.8); LYMPHOCYTES % (AUTO) 3.9 % (20.0-44.0); MEAN CORPUSCULAR HEMOGLOBIN 38 PG (26.0-33.0); MEAN CORPUSCULAR HGB CONC 33 g/dl (31.0-36.0); MEAN CORPUSCULAR VOLUME 116 fL (82-100); MONOCYTES # (AUTO) 1.4 K/uL (0.1-1.30); MONOCYTES % (AUTO) 5.6 % (2.0-12.0); NEUTROPHILS # (AUTO) 22.4 K/uL (1.8-8.9); NEUTROPHILS % (AUTO) 88.6 % (43.0-81.0); PLATELET COUNT (AUTO) 174 K/uL (150-450); RED BLOOD CELL COUNT(AUTO) 2.28 MIL/uL (4.0-5.2); WHITE BLOOD COUNT (AUTO) 25.3 K/uL (4.3-11.0)
[2024-04-10 06:41] LABS: CALCIUM, SERUM 8.3 mg/dL (8.5-10.1); CREATININE 0.8 mg/dL (0.6-1.3); POTASSIUM 3.3 mmol/L (3.5-5.1)
[2024-04-10 07:05] LABS: BAND % (MANUAL) 1 % (0.0-5.0); NEUTROPHILS % (MANUAL) 90 (42-76)
[2024-04-10 07:06] LABS: EOSINOPHILS % (MANUAL) 2 % (0-4); LYMPHOCYTES % (MANUAL) 2 % (16-48); MONOCYTES % (MANUAL) 5 % (0-11.0); PLATELET ESTIMATE ADEQUATE
[2024-04-10 07:07] LABS: ANISOCYTOSIS 2+
[2024-04-10] MEDS: POTASSIUM CHLORIDE 20 MEQ TAB.PRT.SR PO SCH (11:17)
[2024-04-11] VITALS (10 sets, daily range): BP systolic 97–115; BP diastolic 47–55; TEMP 97.9–98.4; O2SAT 99
[2024-04-11 08:52] LABS: BASOPHILS # (AUTO) 0.1 K/uL (0.0-0.2); BASOPHILS % (AUTO) 0.2 % (0.0-2.0); EOSINOPHILS # (AUTO) 0.4 K/uL (0.0-0.7); EOSINOPHILS % (AUTO) 1.6 % (0.0-6.0); LYMPHOCYTES # (AUTO) 1.2 K/uL (0.8-4.8); LYMPHOCYTES % (AUTO) 5.3 % (20.0-44.0); MEAN CORPUSCULAR HEMOGLOBIN 38 PG (26.0-33.0); MEAN CORPUSCULAR HGB CONC 34 g/dl (31.0-36.0); MEAN CORPUSCULAR VOLUME 111 fL (82-100); MONOCYTES # (AUTO) 1.2 K/uL (0.1-1.30); MONOCYTES % (AUTO) 5.3 % (2.0-12.0); NEUTROPHILS # (AUTO) 20.6 K/uL (1.8-8.9); NEUTROPHILS % (AUTO) 87.6 % (43.0-81.0); PLATELET COUNT (AUTO) 196 K/uL (150-450); RED CELL DISTRIBUTION WIDTH 21.9 % (11.5-15.0); WHITE BLOOD COUNT (AUTO) 23.6 K/uL (4.3-11.0)
[2024-04-11 09:00] LABS: RED BLOOD CELL COUNT(AUTO) 1.81 MIL/uL (4.0-5.2)
[2024-04-11 09:01] LABS: HEMOGLOBIN 6.9 g/dL (11.5-14.8)
[2024-04-11 09:02] LABS: HEMATOCRIT 20 % (33-45)
[2024-04-11 09:54] LABS: ANISOCYTOSIS 1+; BAND % (MANUAL) 2 % (0.0-5.0); BASOPHILS % (MANUAL) 0 % (0.0-2.0); EOSINOPHILS % (MANUAL) 1 % (0-4); LYMPHOCYTES % (MANUAL) 7 % (16-48); MONOCYTES % (MANUAL) 5 % (0-11.0); NEUTROPHILS % (MANUAL) 85 (42-76); PLATELET ESTIMATE ADEQUATE; ROULEAUX 1+
[2024-04-11 12:04] LABS: CALCIUM, SERUM 7.9 mg/dL (8.5-10.1); POTASSIUM 2.8 mmol/L (3.5-5.1)
[2024-04-11] MEDS: POTASSIUM CHLORIDE 20 MEQ TAB.PRT.SR PO SCH (20:30)
[2024-04-12 04:00] VITALS: BP 96/50; TEMP 98.4; O2SAT 100
[2024-04-12 06:06] LABS: BASOPHILS % (AUTO) 0.2 % (0.0-2.0); EOSINOPHILS # (AUTO) 0.5 K/uL (0.0-0.7); EOSINOPHILS % (AUTO) 2.4 % (0.0-6.0); HEMATOCRIT 22 % (33-45); HEMOGLOBIN 7.7 g/dL (11.5-14.8); LYMPHOCYTES # (AUTO) 1.1 K/uL (0.8-4.8); MEAN CORPUSCULAR HEMOGLOBIN 36 PG (26.0-33.0); MEAN CORPUSCULAR HGB CONC 35 g/dl (31.0-36.0); MEAN CORPUSCULAR VOLUME 105 fL (82-100); MONOCYTES # (AUTO) 1.4 K/uL (0.1-1.30); MONOCYTES % (AUTO) 6.4 % (2.0-12.0); PLATELET COUNT (AUTO) 178 K/uL (150-450); RED BLOOD CELL COUNT(AUTO) 2.11 MIL/uL (4.0-5.2); RED CELL DISTRIBUTION WIDTH 25.1 % (11.5-15.0); WHITE BLOOD COUNT (AUTO) 22.1 K/uL (4.3-11.0)
[2024-04-12 06:38] LABS: CALCIUM, SERUM 7.8 mg/dL (8.5-10.1); CREATININE 1.1 mg/dL (0.6-1.3)
[2024-04-12] MEDS: POTASSIUM CHLORIDE 20 MEQ TAB.PRT.SR PO SCH (11:23)
[2024-04-12 20:00] VITALS: BP 103/56; TEMP 98.6; O2SAT 99
[2024-04-13 04:00] VITALS: BP 105/54; TEMP 99.1; O2SAT 99
[2024-04-13] MEDS: predniSONE 20 MG TABLET PO SCH (16:21)
[2024-04-13 20:09] VITALS: BP 122/57; TEMP 98.6; O2SAT 100
[2024-04-14 04:00] VITALS: BP 120/55; TEMP 97.6; O2SAT 98
[2024-04-14 08:00] VITALS: BP 125/61; TEMP 98.4; O2SAT 98
[2024-04-14] MEDS: GUAIFENESIN/D-METHORPHAN HB 5 ML UDC PO PRN (15:00)
[2024-04-15 07:07] LABS: BASOPHILS % (AUTO) 0.1 % (0.0-2.0); EOSINOPHILS % (AUTO) 0.2 % (0.0-6.0); HEMATOCRIT 26 % (33-45); HEMOGLOBIN 8.9 g/dL (11.5-14.8); LYMPHOCYTES # (AUTO) 0.6 K/uL (0.8-4.8); LYMPHOCYTES % (AUTO) 4.1 % (20.0-44.0); MEAN CORPUSCULAR HEMOGLOBIN 36 PG (26.0-33.0); MEAN CORPUSCULAR HGB CONC 34 g/dl (31.0-36.0); MEAN CORPUSCULAR VOLUME 107 fL (82-100); MONOCYTES % (AUTO) 6.6 % (2.0-12.0); NEUTROPHILS # (AUTO) 13.4 K/uL (1.8-8.9); PLATELET COUNT (AUTO) 146 K/uL (150-450); RED BLOOD CELL COUNT(AUTO) 2.47 MIL/uL (4.0-5.2); RED CELL DISTRIBUTION WIDTH 27.6 % (11.5-15.0)
[2024-04-15 07:50] LABS: LYMPHOCYTES % (MANUAL) 6 % (16-48); MONOCYTES % (MANUAL) 5 % (0-11.0); MYELOCYTES % 1 % (0-0); NEUTROPHILS % (MANUAL) 88 (42-76); PLATELET ESTIMATE ADEQUATE
[2024-04-15 07:51] LABS: ANISOCYTOSIS 2+
[2024-04-15 08:00] VITALS: BP 115/55; TEMP 97.9; O2SAT 95
[2024-04-15 16:00] VITALS: BP 109/57; TEMP 97.3; O2SAT 97
[2024-04-16 10:01] LABS: BASOPHILS % (AUTO) 0.2 % (0.0-2.0); EOSINOPHILS % (AUTO) 0.3 % (0.0-6.0); HEMATOCRIT 28 % (33-45); HEMOGLOBIN 9.2 g/dL (11.5-14.8); LYMPHOCYTES # (AUTO) 0.6 K/uL (0.8-4.8); LYMPHOCYTES % (AUTO) 4.4 % (20.0-44.0); MEAN CORPUSCULAR HEMOGLOBIN 36 PG (26.0-33.0); MEAN CORPUSCULAR HGB CONC 33 g/dl (31.0-36.0); MEAN CORPUSCULAR VOLUME 108 fL (82-100); MONOCYTES # (AUTO) 0.7 K/uL (0.1-1.30); NEUTROPHILS # (AUTO) 12.2 K/uL (1.8-8.9); NEUTROPHILS % (AUTO) 90.1 % (43.0-81.0); PLATELET COUNT (AUTO) 132 K/uL (150-450); RED BLOOD CELL COUNT(AUTO) 2.57 MIL/uL (4.0-5.2); RED CELL DISTRIBUTION WIDTH 27.7 % (11.5-15.0); WHITE BLOOD COUNT (AUTO) 13.5 K/uL (4.3-11.0)
[2024-04-16 10:07] LABS: BILIRUBIN,DIRECT 9.3 mg/dL (0.0-0.2); BILIRUBIN,TOTAL 11.4 mg/dL (0.2-1.0); CALCIUM, SERUM 8.6 mg/dL (8.5-10.1); CREATININE 0.9 mg/dL (0.6-1.3); TOTAL PROTEIN, SERUM 5.6 g/dL (6.4-8.2)
[2024-04-16 10:28] LABS: POTASSIUM 2.5 mmol/L (3.5-5.1)
[2024-04-16 11:19] LABS: ANISOCYTOSIS 1+; BAND % (MANUAL) 3 % (0.0-5.0); LYMPHOCYTES % (MANUAL) 3 % (16-48); MONOCYTES % (MANUAL) 4 % (0-11.0); NEUTROPHILS % (MANUAL) 90 (42-76); PLATELET ESTIMATE DECREASED
[2024-04-16] MEDS: POTASSIUM CHLORIDE 20 MEQ TAB.PRT.SR PO ONE (11:43)
[2024-04-16] MEDS: POTASSIUM CHLORIDE 10 MEQ TABLET.SA PO ONE (12:24)
[2024-04-16] MEDS ORDERED: PRED20TA PO (15:15)
[2024-04-16] MEDS ORDERED: LACT20SO4 PO (15:15)
[2024-04-16] MEDS ORDERED: CIPR-262 PO (15:18)
[2024-04-16] MEDS ORDERED: CLOTRIMAZOLE 1% 15 GM TUBE TP SCH (17:00)
== END 2024-04-16 16:50 | disposition home health service (06) | DRG 720 ==
LOC: ER 12:48 → TELE1 16:09 → TELE-TD 16:48 → TELE1 04-07 09:54 → MEDSG1 04-08 09:44
PROVIDERS: ADMIT Nurse Practitioner Acute Care; ATTEND Nurse Practitioner Acute Care
PROC: 30233N1 Transfusion of Nonautologous Red Blood Cells into Peripheral Vein, Percutaneous Approach (ICD-10-PCS; principal; 2024-04-11)
DX: A41.9 Sepsis, unspecified organism (principal); K70.40 Alcoholic hepatic failure without coma; E43 Unspecified severe protein-calorie malnutrition; E87.20 Acidosis, unspecified; K76.6 Portal hypertension; K83.1 Obstruction of bile duct; E88.09 Other disorders of plasma-protein metabolism, not elsewhere classified; D69.59 Other secondary thrombocytopenia; K70.10 Alcoholic hepatitis without ascites; K70.30 Alcoholic cirrhosis of liver without ascites; D53.9 Nutritional anemia, unspecified; E86.1 Hypovolemia; F32.A Depression, unspecified; G89.29 Other chronic pain; K21.9 Gastro-esophageal reflux disease without esophagitis; E80.6 Other disorders of bilirubin metabolism; F10.10 Alcohol abuse, uncomplicated; F19.10 Other psychoactive substance abuse, uncomplicated; R16.1 Splenomegaly, not elsewhere classified; R53.1 Weakness; Z68.23 Body mass index [BMI] 23.0-23.9, adult; S31.829A Unspecified open wound of left buttock, initial encounter; X58.XXXA Exposure to other specified factors, initial encounter; Y93.89 Activity, other specified; Y92.009 Unspecified place in unspecified non-institutional (private) residence as the place of occurrence of the external cause; K63.89 Other specified diseases of intestine; F41.9 Anxiety disorder, unspecified
CPT/HCPCS: 36415; 71045-TC; 74181-TC; 76700-TC; 78226; 80048-TC; 80076-TC; 81001; 82140-TC; 83605-TC; 83690-TC; 83735-TC; 84100-TC; 84484-TC; 84703-TC; 85025-TC; 85027-TC; 85730-TC; 86850-TC; 87040-TC; 93307-TC; 97110-TC; 97116-TC; 97530-TC; 97535-TC; A4223; A9537; G0378; G0480; J2270; J2405; J2470; J2543; J3370; J3480; J3490; J7040; J7042; J7050; J7060; J7510; P9016

== ENCOUNTER 2024-10-30 17:00 | Emergency (ER) | payer OTHER ==
[~2024-10-30] VITALS: Ht 175.3 cm; Wt 74.8 kg
[~2024-10-30 17:00] MED LIST changes: +ALPR1TAB7 PO; +CELE200C PO; +CIPR-262 PO; +FLUO10CA29 PO; +LACT20SO4 PO; -NITR100C6 PO; +OLAN20TA3 PO; -OXYC5CAP18 PO; +PANT20TA2 PO; +PRED20TA PO; +SERT50TA PO; +SPIR25TA PO; -SPIR25TA6 PO
[2024-10-30 17:20] VITALS: BP 129/73; TEMP 98.1; O2SAT 99
[2024-10-30 17:35] LABS: BASOPHILS % (AUTO) 0.8 % (0.0-2.0); EOSINOPHILS # (AUTO) 0.1 K/uL (0.0-0.7); EOSINOPHILS % (AUTO) 1.9 % (0.0-6.0); HEMATOCRIT 28 % (33-45); HEMOGLOBIN 9.9 g/dL (11.5-14.8); LYMPHOCYTES # (AUTO) 0.5 K/uL (0.8-4.8); LYMPHOCYTES % (AUTO) 11.1 % (20.0-44.0); MEAN CORPUSCULAR HEMOGLOBIN 37 PG (26.0-33.0); MEAN CORPUSCULAR HGB CONC 35 g/dl (31.0-36.0); MEAN CORPUSCULAR VOLUME 105 fL (82-100); MONOCYTES # (AUTO) 0.3 K/uL (0.1-1.30); MONOCYTES % (AUTO) 7.8 % (2.0-12.0); NEUTROPHILS # (AUTO) 3.4 K/uL (1.8-8.9); NEUTROPHILS % (AUTO) 78.4 % (43.0-81.0); PLATELET COUNT (AUTO) 146 K/uL (150-450); RED BLOOD CELL COUNT(AUTO) 2.68 MIL/uL (4.0-5.2); RED CELL DISTRIBUTION WIDTH 14.8 % (11.5-15.0); WHITE BLOOD COUNT (AUTO) 4.3 K/uL (4.3-11.0)
[2024-10-30 17:41] LABS: CALCIUM, SERUM 9.4 mg/dL (8.5-10.1); CREATININE 0.8 mg/dL (0.6-1.3); POTASSIUM 3.4 mmol/L (3.5-5.1)
[2024-10-30 17:47] LABS: ALBUMIN 3.3 g/dL (3.4-5.0); BILIRUBIN,TOTAL 3.4 mg/dL (0.2-1.0); TOTAL PROTEIN, SERUM 7.9 g/dL (6.4-8.2)
[2024-10-30] MEDS ORDERED: ONDA4TAB11 PO (17:52)
[2024-10-30 17:59] LABS: INR 1.35 (0.91-1.10); PARTIAL THROMBOPLASTIN TIME 35.3 SEC (24.3-34.3)
[2024-10-30] MEDS ORDERED: ONDANSETRON 4 MG TAB.RAPDIS ONE (18:14)
[2024-10-30] MEDS: ONDANSETRON 4 MG TAB.RAPDIS SL ONE (18:16)
[2024-10-30 18:28] LABS: EOSINOPHILS % (MANUAL) 4 % (0-4); LYMPHOCYTES % (MANUAL) 22 % (16-48); NEUTROPHILS % (MANUAL) 74 (42-76)
[2024-10-30 18:29] LABS: PLATELET ESTIMATE ADEQUATE
== END 2024-10-30 18:18 | disposition left against medical advice (07) ==
LOC: ER 17:04
DX: K70.31 Alcoholic cirrhosis of liver with ascites (principal); K42.9 Umbilical hernia without obstruction or gangrene; Z79.1 Long term (current) use of non-steroidal anti-inflammatories (NSAID); Z79.52 Long term (current) use of systemic steroids; Z79.899 Other long term (current) drug therapy; Z88.8 Allergy status to other drugs, medicaments and biological substances
CPT/HCPCS: 99283; 85025; 36415; 80053; 85730; Q0162

== ENCOUNTER 2024-11-21 09:24 | Emergency (ER) | payer OTHER ==
[~2024-11-21] VITALS: Ht 170.2 cm; Wt 78.9 kg
[~2024-11-21 09:24] MED LIST changes: +ONDA4TAB11 PO
[2024-11-21 10:36] VITALS: BP 129/75; TEMP 97.8; O2SAT 99
[2024-11-21] MEDS ORDERED: MIRT-91 PO (15:01)
[2024-11-21] MEDS ORDERED: OLAN10TA3 PO (15:01)
[2024-11-22] MEDS ORDERED: THIA100T88 PO (09:32)
[2024-11-22] MEDS ORDERED: FOLI0.8C PO (09:32)
== END 2024-11-21 10:36 | disposition home or self-care (01) ==
LOC: ER 09:29
DX: F10.129 Alcohol abuse with intoxication, unspecified (principal); Z79.1 Long term (current) use of non-steroidal anti-inflammatories (NSAID); Z79.52 Long term (current) use of systemic steroids; Z79.899 Other long term (current) drug therapy; Z88.8 Allergy status to other drugs, medicaments and biological substances; Y90.8 Blood alcohol level of 240 mg/100 ml or more

== ENCOUNTER 2024-11-21 14:10 | Inpatient (IN) | payer OTHER ==
[~2024-11-21] VITALS: Ht 175.3 cm; Wt 81.8 kg
[2024-11-21] MEDS: IV NS 0.9% 1,000 ML BAG IV ONE (14:34)
[2024-11-21 14:47] LABS: CALCIUM, SERUM 8.6 mg/dL (8.5-10.1); CREATININE 0.7 mg/dL (0.6-1.3); POTASSIUM 3.2 mmol/L (3.5-5.1)
[2024-11-21 14:53] LABS: ALBUMIN 3.6 g/dL (3.4-5.0); BILIRUBIN,DIRECT 1.4 mg/dL (0.0-0.2); BILIRUBIN,TOTAL 5.4 mg/dL (0.2-1.0); TOTAL PROTEIN, SERUM 7.6 g/dL (6.4-8.2)
[2024-11-21] MEDS ORDERED: MIRT-91 PO (15:01)
[2024-11-21] MEDS ORDERED: OLAN10TA3 PO (15:01)
[2024-11-21 15:20] LABS: HEMATOCRIT 30 % (33-45); HEMOGLOBIN 10.6 g/dL (11.5-14.8); MEAN CORPUSCULAR HEMOGLOBIN 35 PG (26.0-33.0); MEAN CORPUSCULAR HGB CONC 35 g/dl (31.0-36.0); MEAN CORPUSCULAR VOLUME 99 fL (82-100); PLATELET COUNT (AUTO) 91 K/uL (150-450); RED BLOOD CELL COUNT(AUTO) 3.01 MIL/uL (4.0-5.2)
[2024-11-21 15:49] LABS: WHITE BLOOD COUNT (AUTO) 6.2 K/uL (4.3-11.0)
[2024-11-21] MEDS ORDERED: OLANZAPINE 10 MG VIAL IM ONE (16:18)
[2024-11-21 16:20] LABS: BASOPHILS % (MANUAL) 0 % (0.0-2.0); EOSINOPHILS % (MANUAL) 2 % (0-4); LYMPHOCYTES % (MANUAL) 20 % (16-48); MONOCYTES % (MANUAL) 7 % (0-11.0); NEUTROPHILS % (MANUAL) 71 (42-76); PLATELET ESTIMATE DECREASED
[2024-11-21] MEDS: OLANZAPINE 10 MG VIAL IM ONE (16:26)
[2024-11-21] MEDS ORDERED: LORAZEPAM INJ 2 MG/ML VIAL IV PRN (17:00)
[2024-11-21] MEDS ORDERED: ONDANSETRON HCL/PF 4 MG/2 ML VIAL IVP PRN (17:00)
[2024-11-21] MEDS: IV NS 0.9% 1,000 ML IV PRN (17:19)
[2024-11-21 17:25] VITALS: BP 109/86; TEMP 97.1; O2SAT 99
[2024-11-21] MEDS: CHLORDIAZEPOXIDE HCL 25 MG CAPSULE PO SCH (17:28)
[2024-11-21] MEDS: FOLIC ACID 1 MG TABLET PO SCH (17:29)
[2024-11-21] MEDS: THIAMINE HCL 100 MG TABLET PO SCH (17:29)
[2024-11-21 20:00] VITALS: BP 106/62; TEMP 98.6; O2SAT 98
[2024-11-21] MEDS: POTASSIUM CHLORIDE 20 MEQ POWDER PACKET PO SCH (20:10)
[2024-11-22 01:23] VITALS: BP 106/62; TEMP 98.6; O2SAT 98
[2024-11-22 07:00] VITALS: BP 138/66; TEMP 97.7; O2SAT 97
[2024-11-22 07:05] LABS: CALCIUM, SERUM 8.2 mg/dL (8.5-10.1); CREATININE 0.6 mg/dL (0.6-1.3); MAGNESIUM 1.6 mg/dL (1.8-2.4); PHOSPHORUS 2.7 mg/dL (2.5-4.9); POTASSIUM 3.2 mmol/L (3.5-5.1)
[2024-11-22 07:19] LABS: HEMATOCRIT 31 % (33-45); HEMOGLOBIN 10.7 g/dL (11.5-14.8); LYMPHOCYTES # (AUTO) 0.9 K/uL (0.8-4.8); LYMPHOCYTES % (AUTO) 21.4 % (20.0-44.0); MEAN CORPUSCULAR HEMOGLOBIN 35 PG (26.0-33.0); MEAN CORPUSCULAR HGB CONC 35 g/dl (31.0-36.0); MEAN CORPUSCULAR VOLUME 99 fL (82-100); MONOCYTES % (AUTO) 24.8 % (2.0-12.0); NEUTROPHILS # (AUTO) 2.2 K/uL (1.8-8.9); NEUTROPHILS % (AUTO) 53.8 % (43.0-81.0); PLATELET COUNT (AUTO) 88 K/uL (150-450); RED BLOOD CELL COUNT(AUTO) 3.09 MIL/uL (4.0-5.2); RED CELL DISTRIBUTION WIDTH 15.3 % (11.5-15.0); WHITE BLOOD COUNT (AUTO) 4.1 K/uL (4.3-11.0)
[2024-11-22 08:57] LABS: ALBUMIN 2.9 g/dL (3.4-5.0); BILIRUBIN,DIRECT 1.1 mg/dL (0.0-0.2); BILIRUBIN,TOTAL 4.9 mg/dL (0.2-1.0); TOTAL PROTEIN, SERUM 6.6 g/dL (6.4-8.2)
[2024-11-22] MEDS ORDERED: THIA100T88 PO (09:32)
[2024-11-22] MEDS ORDERED: FOLI0.8C PO (09:32)
[2024-11-22] MEDS: POTASSIUM CHLORIDE 20 MEQ TAB.PRT.SR PO ONE (09:52)
[2024-11-22] MEDS: MAGNESIUM OXIDE 400 MG TABLET PO ONE (09:53)
[2024-11-22 11:49] LABS: LYMPHOCYTES % (MANUAL) 19 % (16-48); MONOCYTES % (MANUAL) 20 % (0-11.0)
[2024-11-22 11:50] LABS: ANISOCYTOSIS 1+; NEUTROPHILS % (MANUAL) 61 (42-76); PLATELET ESTIMATE DECREASED
== END 2024-11-22 16:26 | disposition home or self-care (01) | DRG 775 ==
LOC: ER 14:18 → ICU 16:16 → UNDOADMIN 16:16 → MED 16:49
PROVIDERS: ADMIT Nurse Practitioner Acute Care; ATTEND Nurse Practitioner Acute Care
DX: F10.129 Alcohol abuse with intoxication, unspecified (principal); G92.9 Unspecified toxic encephalopathy; K76.6 Portal hypertension; K70.10 Alcoholic hepatitis without ascites; K21.9 Gastro-esophageal reflux disease without esophagitis; D53.9 Nutritional anemia, unspecified; E87.6 Hypokalemia; F32.A Depression, unspecified; E80.6 Other disorders of bilirubin metabolism; Y90.8 Blood alcohol level of 240 mg/100 ml or more; F19.10 Other psychoactive substance abuse, uncomplicated
CPT/HCPCS: 36415; 80048-TC; 80076-TC; 83690-TC; 83735-TC; 84100-TC; 85025-TC; G0378; G0480; J3490; J7030

== ENCOUNTER 2024-12-22 22:08 | Emergency (ER) | payer OTHER ==
[~2024-12-22] VITALS: Ht 167.6 cm; Wt 69.9 kg
[~2024-12-22 22:08] MED LIST changes: -CELE200C PO; -CIPR-262 PO; -FLUO10CA29 PO; +FOLI0.8C PO; -LACT20SO4 PO; +MIRT-91 PO; +OLAN10TA3 PO; -OLAN20TA3 PO; -PRED20TA PO; +THIA100T88 PO
[2024-12-23 06:05] VITALS: TEMP 97.9
[2024-12-23 06:06] VITALS: BP 121/63; O2SAT 97
== END 2024-12-23 06:06 | disposition home or self-care (01) ==
LOC: ER 22:09
DX: F10.129 Alcohol abuse with intoxication, unspecified (principal); R10.2 Pelvic and perineal pain; R51.9 Headache, unspecified; Z79.899 Other long term (current) drug therapy; Z88.8 Allergy status to other drugs, medicaments and biological substances; Z87.19 Personal history of other diseases of the digestive system; V47.5XXA Car driver injured in collision with fixed or stationary object in traffic accident, initial encounter; Y93.89 Activity, other specified; Y92.488 Other paved roadways as the place of occurrence of the external cause; Y99.8 Other external cause status; Y90.9 Presence of alcohol in blood, level not specified
CPT/HCPCS: 36415; 70450-TC; 72125-TC; 84702-TC